=== PATIENT | female | born 1970 | race African-American/Black ===

== ENCOUNTER 2019-04-25 04:42 | Emergency (ER) | payer OTHER ==
[~2019-04-25] VITALS: Ht 160 cm; Wt 83.6 kg
[~2019-04-25 04:42] MED LIST: [UNRECOGNIZED DRUG - CODE] PO
[2019-04-25 06:03] VITALS: BP 152/86
== END 2019-04-25 06:10 | disposition home or self-care (01) ==
LOC: EMS 04:45
DX: M54.12 Radiculopathy, cervical region (principal); R20.2 Paresthesia of skin; G89.29 Other chronic pain; F17.210 Nicotine dependence, cigarettes, uncomplicated; Z88.1 Allergy status to other antibiotic agents
CPT/HCPCS: 99406

== ENCOUNTER 2021-08-30 20:34 | Emergency (ER) | payer OTHER | END 2021-08-30 23:26 | disposition left against medical advice (07) | LOC: EMS 20:35 | DX: R51.9 Headache, unspecified (principal); Z53.21 Procedure and treatment not carried out due to patient leaving prior to being seen by health care provider ==